=== PATIENT | male | born 1970 | race Caucasian/White ===

== ENCOUNTER 2018-07-12 17:06 | Emergency (ER) | payer OTHER ==
[~2018-07-12] VITALS: Ht 177.8 cm; Wt 93.0 kg
[2018-07-12] MEDS ORDERED: TESSALON PERLE100 MG PO (18:47)
[2018-07-12] MEDS ORDERED: DOXYCYCLINE100 M3 PO (18:47)
[2018-07-12] MEDS ORDERED: PREDNISONE20 M1 PO (18:47)
[2018-07-12] MEDS ORDERED: PROVENTIL HFA6.7 GM INH (18:47)
== END 2018-07-12 18:52 | disposition home or self-care (01) ==
LOC: ED 17:06
DX: J40 Bronchitis, not specified as acute or chronic (principal)